=== PATIENT | male | born 1980 | race Caucasian/White ===

== ENCOUNTER 2022-06-29 19:00 | Emergency (ER) | payer OTHER, MEDICAID, SELFPAY ==
[2022-06-29] VITALS (14 sets, daily range): BP systolic 126–151; BP diastolic 64–82; PULSE 88–123; RESP 18–31; TEMP 36.9–37.7; O2SAT 91–99; BMI 33.9
--- NOTE | 2022-06-29 19:09 | DI.RAD.S_ITS ---
PROCEDURE: XR CHEST 1V INDICATIONS: Shortness of breath TECHNIQUE: One view of the chest was acquired. COMPARISON: [facility], , CHEST 1 VIEW, 11/07/2016, 21:15. FINDINGS: Surgical changes and devices: None. Lungs and pleura: Lungs are clear. No pleural effusions or pneumothorax. Mediastinum: Mediastinal contours appear normal. Heart size is normal. Bones and chest wall: No suspicious bony lesions. Overlying soft tissues appear unremarkable. IMPRESSION: No acute cardiopulmonary abnormality. Approved by: Branden Maloney M.D. on 06/29/2022 at 19:54
[2022-06-29 19:19] LABS: Add Manual Diff / Slide Review NO; Basophils Absolute Auto 100 /uL (0-100); Basophils Percent Auto 0.5 % (0-2); Eosinophils Absolute Auto 300 /uL (0-450); Eosinophils Percent Auto 3.2 % (2-4); Hematocrit 47.6 % (41-53); Hemoglobin 16.5 g/dL (13.5-17.5); Lymphocytes Absolute Auto 600 /uL (1100-4500); Lymphocytes Percent Auto 5.1 % (25-40); Mean Corpuscular HGB Conc 34.6 % (30-36); Mean Corpuscular Hemoglobin 31.3 PG (26-34); Mean Corpuscular Volume 90.4 fL (80-100); Monocytes Absolute Auto 1000 /uL (0-900); Neutrophils Absolute Auto 8900 /uL (1500-7000); Neutrophils Percent Auto 82.2 % (50-75); Platelet Count 242 X10^3/uL (150-400); Red Blood Cell Count 5.26 X10^6/uL (4.5-5.9); White Blood Cell Count 10.8 X10^3/uL (4.5-11.0)
[2022-06-29 19:24] LABS: INR 1.2 (0.9-1.3); Prothrombin Time 13.3 SECONDS (10.1-12.7)
[2022-06-29 19:28] LABS: Lactate (Lactic Acid) 2.5 mmol/L (0.7-2.1)
[2022-06-29 19:29] LABS: Alanine Aminotransferase 40 IU/L (<50); Albumin 4.4 g/dL (3.5-5.0); Albumin Globulin Ratio 1.2 (1.0-2.8); Alkaline Phosphatase 81 U/L (38-126); Aspartate Aminotransferase 31 IU/L (17-59); BUN Creatinine Ratio 17.6 (6-22); Bilirubin Total 1.2 mg/dL (0.2-1.3); Blood Urea Nitrogen 13 mg/dL (9-20); Carbon Dioxide 21 mmol/L (22-32); Chloride 99 mmol/L (98-107); Estimated Glomerular Filt Rate > 60 mL/min (>60); Globulin 3.6 g/dL (1.7-4.1); Glucose 144 mg/dL (70-100); Potassium 3.8 mmol/L (3.4-5.1); Sodium 134 mmol/L (137-145)
[2022-06-29 19:40] LABS: NT-proBNP (BNP-Adult 18+) 11 pg/mL (<125); Troponin I < 0.012 ng/mL (0.01-0.034)
[2022-06-29 19:57] LABS: Influenza A - CEPHEID Flu A NEGATIVE (NEGATIVE); Influenza B - CEPHEID Flu B NEGATIVE (NEGATIVE); Respiratory Syncytial Virus Negative (Negative)
[2022-06-29 20:01] LABS: Creatine Kinase 109 U/L (55-170)
[2022-06-29 20:02] LABS: COVID-19 CEPHEID 4-PLEX PCR POSITIVE (Negative)
[2022-06-29] MEDS: SODIUM CHLORIDE 0.9% 1,000 ML 1000 ML IV (20:08)
[2022-06-29] MEDS: ACETAMINOPHEN 325 MG TABLET 975 MG PO (20:10)
[2022-06-29 20:18] LABS: CKMB % Relative Index 1.3 % (1.5-5.0); Creatine Kinase MB 1.38 ng/mL (<2.37); HEMOLYSIS 20 (0-50)
[2022-06-29 21:14] LABS: Reflexed Lactate in 2 Hours Y
--- NOTE | 2022-06-29 21:15 | ED.GENADULT ---
HPI - General Adult General Chief complaint: Upper Respiratory Symptoms Stated complaint: SOB, Covid symptoms Time Seen by Provider: 06/29/22 19:33 Mode of arrival: Family Vehicle History of Present Illness HPI narrative: 42-year-old gentleman with no reported significant medical history states that he began feeling ill last night with headache, dyspnea, dry cough, fever was noted to be tachycardic on triage. He did have some nausea but no vomiting. No abdominal pain or diarrhea. Notes that he is not been vaccinated against COVID and he is not aware of prior COVID infections. His significant other with whom he lives was diagnosed with COVID yesterday. He is not complaining of palpitations, orthopnea or lower extremity edema. Related Data Previous Rx's Medication Instructions Recorded benzonatate 200 mg capsule 200 mg PO BID-TID PRN cough #20 06/29/22 caps Allergies Allergy/AdvReac Type Severity Reaction Status Date / Time No Known Drug Allergies Allergy Verified 06/29/22 19:46 Patient History Medical History COVID-19 Social History Smoking Status: Never smoker Smoking Status: Never smoker Substance Use Type: does not use Exam Initial Vital Signs Initial Vital Signs: Vital Signs Temperature 100 F H 06/29/22 19:02 Pulse Rate 123 H 06/29/22 19:02 Respiratory Rate 18 06/29/22 19:02 Blood Pressure 144/82 H 06/29/22 19:02 Pulse Oximetry 96 06/29/22 19:02 Oxygen Delivery Method Room Air 06/29/22 19:02 General: appears to feel unwell but not in significant respiratory distress. Able to give a complete and coherent history. Well-nourished well-developed HEENT: Moist mucous membranes, normal sclera with reactive pupils, Respiratory: Lungs are clear to auscultation, no wheezing no rales no rhonchi. Full and symmetrical air movement Cardiac: slightly tachycardic but otherwise Regular rate and rhythm no murmurs no bruits Abdomen: Soft, nontender, good bowel tones, no flank pain Skin: Warm and dry, no rashes, well perfused Neurologic: Grossly neurologically intact with no obvious asymmetries or abnormalities Extremities: No trauma, well perfused Psych: Cooperative, appropriate insight and affect Course Orders Ordered: ED Orders 06/29/22 19:09 XR chest 1V Stat CKMB Panel (CK + CKMB) Stat Complete Blood Count AUTO DIFF Stat Comprehensive Metabolic Panel Stat Lactate (Lactic Acid) Stat NT-proBNP (BNP-Adult 18+) Stat Prothrombin Time INR Stat Troponin I Stat EKG-12 Lead Stat RT Consult Eval and Treat NOW 06/29/22 19:15 Covid-19 + FLU A/B + RSV - PCR Stat 06/29/22 19:55 Blood Culture Stat Discontinued Medications Acetaminophen (Acetaminophen 325 Mg Tablet) 975 mg PO NOW ONE Stop: 06/29/22 19:48 Last Admin: 06/29/22 20:10 Dose: 975 mg Documented By: JACEY Sodium Chloride (Normal Saline 0.9%) 1,000 mls @ 1,000 mls/hr IV BOLUS ONE Stop: 06/29/22 20:44 Last Infusion: 06/29/22 21:09 Dose: 0 mls/hr Documented By: Admin: 06/29/22 20:08 Dose: 1,000 mls/hr Documented By: JACEY Vital Signs Vital signs: Vital Signs - 8 hr 06/29/22 19:02 06/29/22 19:06 06/29/22 19:15 Temperature 100 F H Pulse Rate 123 H 115 H 114 H Respiratory Rate 18 31 H 29 H Blood Pressure 144/82 H Pulse Oximetry 96 96 93 Oxygen Delivery Method Room Air 06/29/22 19:30 06/29/22 19:30 Temperature Pulse Rate 112 H Respiratory Rate 28 H Blood Pressure 150/72 H Pulse Oximetry 91 Oxygen Delivery Method Room Air Medical Decision Making Lab Data 06/29/22 19:09 06/29/22 19:09 Labs: Lab Results 06/29/22 06/29/22 06/29/22 Range/Units 19:09 19:09 19:09 WBC 10.8 (4.5-11.0) X10^3/uL RBC 5.26 (4.5-5.9) X10^6/uL Hgb 16.5 (13.5-17.5) g/dL Hct 47.6 (41-53) % MCV 90.4 (80-100) fL MCH 31.3 (26-34) PG MCHC 34.6 (30-36) % RDW 13.0 (11.6-14.8) % Plt Count 242 (150-400) X10^3/uL Neut % (Auto) 82.2 H (50-75) % Lymph % (Auto) 5.1 L (25-40) % Hodgeman % (Auto) 9.0 (3-14) % Eos % (Auto) 3.2 (2-4) % Baso % (Auto) 0.5 (0-2) % Neut # (Auto) 8900 H (0145-3016) /uL Lymph # (Auto) 600 L (6245-5856) /uL Hodgeman # (Auto) 1000 H (0-900) /uL Eos # (Auto) 300 (0-450) /uL Baso # (Auto) 100 (0-100) /uL PT 13.3 H (10.1-12.7) SECONDS INR 1.2 (0.9-1.3) Sodium 134 L (137-145) mmol/L Potassium 3.8 (3.4-5.1) mmol/L Chloride 99 (98-107) mmol/L Carbon Dioxide 21 L (22-32) mmol/L BUN 13 (9-20) mg/dL Creatinine 0.74 (0.66-1.25) mg/dL Estimated GFR > 60 (>60) mL/min BUN/Creatinine Ratio 17.6 (6-22) Glucose 144 H (70-100) mg/dL Lactate (0.7-2.1) mmol/L Calcium 9.0 (8.4-10.2) mg/dL Total Bilirubin 1.2 (0.2-1.3) mg/dL AST 31 (17-59) IU/L ALT 40 (<50) IU/L Alkaline Phosphatase 81 (38-126) U/L Total Creatine Kinase 109 (55-170) U/L CK-MB (CK-2) 1.38 (<2.37) ng/mL CK-MB (CK-2) Rel Index 1.3 L (1.5-5.0) % Troponin I < 0.012 (0.01-0.034) ng/mL NT-Pro-B Natriuret Pep 11 (<125) pg/mL Total Protein 8.0 (6.3-8.2) g/dL Albumin 4.4 (3.5-5.0) g/dL Globulin 3.6 (1.7-4.1) g/dL Albumin/Globulin Ratio 1.2 (1.0-2.8) SARS-CoV-2 (PCR) (Negative) Influenza A (RT-PCR) (NEGATIVE) Influenza B (RT-PCR) (NEGATIVE) RSV (PCR) (Negative) 06/29/22 06/29/22 Range/Units 19:09 19:15 WBC (4.5-11.0) X10^3/uL RBC (4.5-5.9) X10^6/uL Hgb (13.5-17.5) g/dL Hct (41-53) % MCV (80-100) fL MCH (26-34) PG MCHC (30-36) % RDW (11.6-14.8) % Plt Count (150-400) X10^3/uL Neut % (Auto) (50-75) % Lymph % (Auto) (25-40) % Hodgeman % (Auto) (3-14) % Eos % (Auto) (2-4) % Baso % (Auto) (0-2) % Neut # (Auto) (8322-2169) /uL Lymph # (Auto) (4991-4059) /uL Hodgeman # (Auto) (0-900) /uL Eos # (Auto) (0-450) /uL Baso # (Auto) (0-100) /uL PT (10.1-12.7) SECONDS INR (0.9-1.3) Sodium (137-145) mmol/L Potassium (3.4-5.1) mmol/L Chloride (98-107) mmol/L Carbon Dioxide (22-32) mmol/L BUN (9-20) mg/dL Creatinine (0.66-1.25) mg/dL Estimated GFR (>60) mL/min BUN/Creatinine Ratio (6-22) Glucose (70-100) mg/dL Lactate 2.5 H (0.7-2.1) mmol/L Calcium (8.4-10.2) mg/dL Total Bilirubin (0.2-1.3) mg/dL AST (17-59) IU/L ALT (<50) IU/L Alkaline Phosphatase (38-126) U/L Total Creatine Kinase (55-170) U/L CK-MB (CK-2) (<2.37) ng/mL CK-MB (CK-2) Rel Index (1.5-5.0) % Troponin I (0.01-0.034) ng/mL NT-Pro-B Natriuret Pep (<125) pg/mL Total Protein (6.3-8.2) g/dL Albumin (3.5-5.0) g/dL Globulin (1.7-4.1) g/dL Albumin/Globulin Ratio (1.0-2.8) SARS-CoV-2 (PCR) Positive H (Negative) Influenza A (RT-PCR) Flu a negative (NEGATIVE) Influenza B (RT-PCR) Flu b negative (NEGATIVE) RSV (PCR) Negative (Negative) Imaging Data Chest x-ray: Radiologist's Impression: FINDINGS:? ? Surgical changes and devices:? None.? ? Lungs and pleura:? Lungs are clear.? No pleural effusions or pneumothorax.? ? Mediastinum:? Mediastinal contours appear normal.? Heart size is normal.? ? Bones and chest wall:? No suspicious bony lesions.? Overlying soft tissues appear unremarkable.? ? IMPRESSION:? No acute cardiopulmonary abnormality. ? ? ? Approved by: Branden Maloney M.D. on 06/29/2022 at 19:54? ECG Data Interpretation: sinus tachycardia at 115 normal intervals, normal axis no ischemic changes MDM Narrative Medical decision making narrative: CC: Cough. This is a new problem, uncertain diagnosis with possibility of systemic symptoms Differential considered: COVID-19, other viral pneumonia, bacterial superinfection, myocarditis, congestive heart failure Exam documented above, pertinent findings include: appears unwell, no respiratory distress, able to speak in full sentences exam is otherwise benign Lab Test results independently reviewed as above. Pertinent findings: chemistries are reassuring. CBC is unremarkable with no significant leukocytosis or anemia. COVID test is positive. lactic acid is slightly elevated at 2.2 Independently reviewed EKG as above: unremarkable Imaging studies independently reviewed: chest x-ray is reassuring Discussion: 42-year-old gentleman with COVID no prior known exposure or vaccination. No significant respiratory distress with oxygen saturations at 98%. Reviewed conservative management and reasons to return to the emergency department. Recommended ibuprofen and Tylenol, given a prescription for Tessalon Perles to help with cough. This point he is safe for discharge home Disposition: see below, along with detailed discharge instructions that have been reviewed with patient as well as indications for ED re-evaluation and additional outpatient follow up Discharge Plan Departure Patient Disposition: Home Clinical Impression: COVID-19 Instructions: DI for COVID-19 (Suspected or Confirmed ) Activity Restrictions/Additional Instructions: thank you for coming in today you have COVID. Your lab work was reassuring. Your chest x-ray did not have any acute findings. There is no sign of kidney failure or liver failure. No evidence of heart attack. No evidence of bacterial superinfection. The reason for admission to the hospital is oxygen saturations consistently below 88%. In the emergency department today, despite feeling horrible, your saturations were at 98% which is reassuring Using 400 mg of ibuprofen (2 [id number] pills) and 1 Tylenol every 6 hours can be very helpful in controlling pain. Feel free to use [id number] cough suppressants. To this you can also add TessalonPerles. I have given you a written prescription for this. If you find that you are getting worse or develop any new symptoms, please feel free to return to the emergency department for further evaluation. Prescriptions: New benzonatate 200 mg capsule 200 mg PO BID-TID PRN (Reason: cough) Qty: 20 0RF Stand Alone Forms: Patient Portal/API
== END 2022-06-29 21:45 | disposition home or self-care (01) ==
PROVIDERS: Emergency Provider Emergency Medicine
DX: U07.1 COVID-19 (principal); R00.0 Tachycardia, unspecified; Z20.822 Contact with and (suspected) exposure to COVID-19
CPT/HCPCS: 0241U; 36415; 71045; 80053; 82550; 82553; 83605; 83880; 84484; 85025; 85610; 87040; 93005; 93010; 96360; 99284

== ENCOUNTER 2023-06-06 21:02 | Emergency (ER) | payer OTHER, MEDICAID, SELFPAY ==
[2023-06-06] VITALS (7 sets, daily range): BP systolic 134–149; BP diastolic 82–99; PULSE 79–88; RESP 17–18; TEMP 36.8; O2SAT 98–100; BMI 33.9
--- NOTE | 2023-06-06 22:26 | PC.NURSE ---
Attempted multiple times to clean off dried blood from facial wound.
[2023-06-07] VITALS: PULSE 88; O2SAT 100
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
[2023-06-07 00:30] VITALS: PULSE 87; O2SAT 100
[2023-06-07 01:00] VITALS: PULSE 96; O2SAT 97
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
[2023-06-07 01:34] VITALS: BP 153/81; PULSE 97; O2SAT 97
[2023-06-07] MEDS: TET,DIPH,PERTUSS(ACELL),VAC/PF 0.5 ML SYRINGE IM (01:40)
[2023-06-07 02:00] VITALS: BP 140/84; PULSE 85; O2SAT 100
== END 2023-06-07 02:41 | disposition home or self-care (01) ==
PROVIDERS: Emergency Provider Emergency Medicine
DX: S00.83XA Contusion of other part of head, initial encounter (principal); R07.9 Chest pain, unspecified; R07.81 Pleurodynia; M79.652 Pain in left thigh; V29.99XA Rider (driver) (passenger) of other motorcycle injured in unspecified traffic accident, initial encounter; Z23 Encounter for immunization
CPT/HCPCS: 70450; 70486; 71101; 72125; 90471; 99284; 90715